=== PATIENT | male | born 1980 | race Caucasian/White ===

== ENCOUNTER → 2022-10-13 07:01 | Outpatient (CLI) | payer OTHER, SELFPAY ==
--- NOTE | ~2022-10-13 | MR_ITS ---
EXAMINATION: MR shoulder LT wo con DATE: 10/13/2022 07:34 INDICATION: Chronic left shoulder pain with limited range of motion TECHNIQUE: Magnetic resonance imaging (MRI) of the left shoulder was performed without intravenous co ntrast. Sequences included axial PD-weighted FS FSE, coronal oblique PD-weighted FS FSE, coronal obli que T2-weighted FS FSE, sagittal PD-weighted FS FSE, and sagittal T1-weighted SE. COMPARISON: None. FINDINGS: Coracoacromial arch: The acromion undersurface is curved in morphology (type II) with anterior downsloping.. The coracoacr omial ligament is normal. Minimal acromioclavicular osteoarthritis. Rotator cuff: The supraspinatus, subscapularis and teres minor tendons are normal. Mild infraspinatus tendinopathy without tear. Normal rotator cuff muscle bulk and signal. Biceps tendon, glenoid labrum and glenohumeral cartilage: Long head of the biceps tendon is normal. Normal anterosuperior sublabral foramen. The anteroinferior to inferior labrum appear small. Tiny para labral cyst along the peripheral margin of a linear fluid signal intensity labral tear at the 5:00-6:00 position of the anteroinferior glenoid labrum. Glenohu meral cartilage is normal. Fluid: Physiologic amount of fluid in the glenohumeral joint and biceps tendon sheath. No loose osteochondr al bodies. No abnormal fluid signal in the subacromial/subdeltoid bursa to suggest bursitis. Bones: Normal marrow signal with no edema, fracture or abnormal marrow replacing process. IMPRESSION: 1. Small tear at the 5:00-6:00 position of the anteroinferior glenoid labrum. 2. Mild infraspinatus tendinopathy without tear. Reviewed, dictated and finalized at location A. [employer]
== END ==
PROVIDERS: PCP Physician Assistant; Visit Provider Orthopaedic Surgery
DX: S43.492A Other sprain of left shoulder joint, initial encounter (principal); X58.XXXA Exposure to other specified factors, initial encounter
CPT/HCPCS: 73221